=== PATIENT | female | born 1970 | race Caucasian/White ===

== ENCOUNTER → 2025-07-06 | Emergency (ER) | payer MEDICAID, OTHER ==
[~2025-07-06] VITALS: Ht 172.7 cm; Wt 90.0 kg
[2025-07-06 15:34] VITALS: TEMP 98
[2025-07-06 17:39] LABS: PLATELET COUNT (AUTO) 198 K/uL (150-450); RED BLOOD CELL COUNT(AUTO) 4.33 MIL/uL (4.00-5.20); RED CELL DISTRIBUTION WIDTH 13.5 % (11.5-14.5); WHITE BLOOD COUNT (AUTO) 7.6 K/uL (4.5-11.0)
[2025-07-06 17:46] LABS: CALCIUM, TOTAL 8.8 mg/dL (8.8-10.5); CREATININE 0.75 mg/dL (0.60-1.30); GLOMERULAR FILTR. RATE CALC > 60 mL/min (>60); GLUCOSE,RANDOM 110 mg/dL (70-110); SODIUM SERUM 142 mmol/L (136-145); UREA NITROGEN, BLOOD 15 mg/dL (7-18)
[2025-07-06 19:00] VITALS: BP 139/74; PULSE 84; RESP 16; O2SAT 98
== END | disposition still patient (30) ==
LOC: EMS 14:50
DX: F31.9 Bipolar disorder, unspecified (principal); I10 Essential (primary) hypertension; Z85.850 Personal history of malignant neoplasm of thyroid; Z91.09 Other allergy status, other than to drugs and biological substances
CPT/HCPCS: 99284; 80048; 85025; 36415; G0480